=== PATIENT | male | born 1970 | race Caucasian/White ===

== ENCOUNTER → 2017-01-02 | Outpatient (CLI) | payer OTHER ==
[~2017-01-02] MED LIST: TRIA1SPR4 NAE
[2017-01-02 13:18] LABS: BLOOD UREA NITROGEN 20 mg/dl (7-18); BUN/CREATININE RATIO 16.6 (10-20); CARBON DIOXIDE 28 mmol/L (21-32); CHLORIDE 107 mmol/L (98-107); GLUCOSE 99 mg/dl (70-99); HDL CHOLESTEROL 51 mg/dl; POTASSIUM 4.6 mmol/L (3.5-5.1); SODIUM 140 mmol/L (136-145)
[2017-01-02 13:29] LABS: CHOLESTEROL 213 mg/dl (0-200); CHOLESTEROL/HDL RATIO 4.2; LDL CHOLESTEROL CALCULATED 141 mg/dl; TRIGLYCERIDES 103 mg/dl (0-150); VERY LOW DENSITY LIPOPROT CALC 21 mg/dl
== END | disposition home or self-care (01) ==
LOC: C.LAB1850 08:57
PROVIDERS: ATTEND Internal Medicine
DX: R68.82 Decreased libido (principal); E78.00 Pure hypercholesterolemia, unspecified; R53.83 Other fatigue; R73.03 Prediabetes

== ENCOUNTER 2017-02-25 11:47 | Emergency (ER) | payer OTHER ==
[~2017-02-25] VITALS: Ht 190.5 cm; Wt 95.6 kg
[2017-02-25 11:58] VITALS: TEMP 36.7; Ht 190.5 cm; Wt 95.6 kg
[2017-02-25] MEDS ORDERED: SODIUM CHLORIDE 0.9% 1000ML 2,000 ML IV STA (12:12)
[2017-02-25] MEDS ORDERED: TRIA1SPR4 NAE (12:34)
[2017-02-25 12:39] LABS: URINE APPEARANCE CLEAR (CLEAR); URINE BILIRUBIN NEG (NEG); URINE COLOR YELLOW; URINE NITRITE NEG (NEG); URINE SPECIFIC GRAVITY 1.023 (1.000-1.030); UROBILINOGEN NEG (NEG); ZZUR CULT IF INDIC CLEAN CATCH NO
--- NOTE | 2017-02-25 12:42 | EMERGENCY ROOM VISIT NOTE ---
History Report prepared by Randall: Ana Bernal Under the Supervision of: Dr. Thelma Kuhn M.D. First contact with patient: 12:02 Chief Complaint: SYNCOPE (NEAR SYNCOPE) Stated Complaint: FAINTED, DIZZY SPELLS, NAUSEA Nursing Triage Summary: pt states he was drinking heavily last night and felt weird and was laying in the tub and his reports his eyes rolled back and was passed out and now feels lightheaded History of Present Illness The patient is a 46 year old male who presents to the Emergency Room with complaints of a sudden syncopal episode that occurred this morning prior to arrival. The patient states that last evening he was at an event and drank a lot of alcohol. He states that when he woke this morning he was surprised to not feel very hung over. The patient states that while he was taking a shower this morning, a wave of fear overcame him and he began to feel lightheaded. He states that he sat down and called for his . The patient states that sitting down was the last thing he remembered. The patient's states that the patient's eyes rolled back in his head and he then collapsed. The patient states that when he came through he heard his yelling. The patient denies any drug use. He denies any chest pain or shortness of breath. The patient denies any recent travel or history of blood clots. He denies taking any blood pressure medications. The patient denies any tobacco use. He states that last night when he got home he ate a bowl of cereal. The patient does report that he has been increasingly anxious recently. Source of History: patient, spouse/significant other Onset: prior to arrival Position: other (global) Quality: other (syncopal episode) Timing: other (sudden) Associated Symptoms: No chest pain, No SOB Note: Associated symptoms: increasing anxiety Review of Systems See HPI for pertinent positives & negatives. A total of 10 systems reviewed and were otherwise negative. Past Medical & Surgical Surgical Problems: (1) Lower back surgery Family History Patient reports no known family medical history. Social History Smoking Status: Never Smoker Alcohol Use: occasionally Marital Status: Housing Status: lives with family Occupation Status: employed Current/Historical Medications Scheduled Triamcinolone Acetonide (Nasal (Nasacort Allergy 24Hr), 1 SPRAY CHRISTIE DAILY Allergies Coded Allergies: POLLEN (Verified Allergy, Unknown, "HAYFEVER", 02/25/17) Morphine (Verified Adverse Reaction, Unknown, DIZZINESS, 02/25/17) Physical Exam Vital Signs Date Time Temp Pulse Resp B/P (MAP) Pulse Ox O2 Delivery O2 Flow Rate FiO2 02/25/17 13:52 55 20 136/96 100 02/25/17 12:43 54 02/25/17 12:38 54 18 115/73 56 129/79 55 141/79 02/25/17 11:58 36.7 59 18 132/89 97 Room Air Physical Exam Vital signs reviewed. General: Well-appearing male, in no significant distress. HEENT: No scleral icterus, PERRLA, neck supple. Atraumatic. Cardiovascular: Regular rate and rhythm, no extra sounds. Pulmonary: Clear to auscultation bilaterally, normal work of breathing. Abdomen: Soft, nontender, nondistended, positive bowel sounds. Musculoskeletal: Atraumatic, no peripheral edema. Neurologic: Patient awake alert and oriented x 3, full strength in all 4 extremities. Cranial nerves 2 through 12 grossly intact. No meningeal signs. Skin: Warm, dry, no rash Medical Decision & Procedures ER Provider Diagnostic Interpretation: X-ray results as stated below per interpretation by me and the radiologist: CHEST ONE VIEW PORTABLE HISTORY: syncope COMPARISON: Chest 07/06/2013. FINDINGS: The lungs are clear. Cardiac silhouette is normal in size. No pleural effusions. No pneumothorax. IMPRESSION: No acute process. Electronically signed by: Parag Crespo M.D. 02/25/2017 12:51 PM Dictated Date/Time: 02/25/2017 12:50 PM Laboratory Results 02/25/17 12:21 Red Blood Count 4.97, Mean Corpuscular Volume 85.9, Mean Corpuscular Hemoglobin 30.6, Mean Corpuscular Hemoglobin Concent 35.6, Mean Platelet Volume 9.2, Neutrophils (%) (Auto) 44.2, Lymphocytes (%) (Auto) 40.0, Monocytes (%) (Auto) 12.0, Eosinophils (%) (Auto) 3.2, Basophils (%) (Auto) 0.4, Neutrophils # (Auto ) 2.24, Lymphocytes # (Auto) 2.03, Monocytes # (Auto) 0.61, Eosinophils # (Auto ) 0.16, Basophils # (Auto) 0.02 02/25/17 12:21 Test 02/25/17 12:07 02/25/17 12:20 02/25/17 12:21 02/25/17 12:43 Urine Color YELLOW Urine Appearance CLEAR (CLEAR) Urine pH 5.0 (4.5-7.5) Urine Specific [place] 1.023 (1.000-1.030) Urine Protein NEG (NEG) Urine Glucose (UA) NEG (NEG) Urine Ketones NEG (NEG) Urine Occult Blood NEG (NEG) Urine Nitrite NEG (NEG) Urine Bilirubin NEG (NEG) Urine Urobilinogen NEG (NEG) Urine Leukocyte Esterase NEG (NEG) Bedside Glucose 101 mg/dl (70-99) White Blood Count 5.07 K/uL (4.8-10.8) Red Blood Count 4.97 M/uL (4.7-6.1) Hemoglobin 15.2 g/dL (14.0-18.0) Hematocrit 42.7 % (42-52) Mean Corpuscular Volume 85.9 fL (80-100) Mean Corpuscular Hemoglobin 30.6 pg (25-34) Mean Corpuscular Hemoglobin Concent 35.6 g/dl (32-36) Platelet Count 218 K/uL (130-400) Mean Platelet Volume 9.2 fL (7.4-10.4) Neutrophils (%) (Auto) 44.2 % Lymphocytes (%) (Auto) 40.0 % Monocytes (%) (Auto) 12.0 % Eosinophils (%) (Auto) 3.2 % Basophils (%) (Auto) 0.4 % Neutrophils # (Auto) 2.24 K/uL (1.4-6.5) Lymphocytes # (Auto) 2.03 K/uL (1.2-3.4) Monocytes # (Auto) 0.61 K/uL (0.11-0.59) Eosinophils # (Auto) 0.16 K/uL (0-0.5) Basophils # (Auto) 0.02 K/uL (0-0.2) RDW Standard Deviation 38.1 fL (36.4-46.3) RDW Coefficient of Variation 12.1 % (11.5-14.5) Immature Granulocyte % (Auto) 0.2 % Immature Granulocyte # (Auto) 0.01 K/uL (0.00-0.02) Anion Gap 7.0 mmol/L (3-11) Est Creatinine Clear Calc Drug Dose 99.2 ml/min Estimated GFR () 92.2 Estimated GFR (Non- 79.5 BUN/Creatinine Ratio 14.3 (10-20) Calcium Level 8.7 mg/dl (8.5-10.1) Magnesium Level 2.1 mg/dl (1.8-2.4) Total Bilirubin 0.9 mg/dl (0.2-1) Direct Bilirubin 0.2 mg/dl (0-0.2) Aspartate Amino Transf (AST/SGOT) 23 U/L (15-37) Alanine Aminotransferase (ALT/SGPT) 34 U/L (12-78) Alkaline Phosphatase 65 U/L (45-117) Total Creatine Kinase 355 U/L (39-308) Creatine Kinase MB 2.8 ng/ml (0.5-3.6) Creatine Kinase MB Ratio 0.8 (0-3.0) Total Protein 6.8 gm/dl (6.4-8.2) Albumin 3.9 gm/dl (3.4-5.0) Thyroid Stimulating Hormone (TSH) 1.510 uIu/ml (0.300-4.500) Ethyl Alcohol mg/dL < 3.0 mg/dl (0-3) Bedside Troponin I < 0.030 ng/ml (0-0.045) Laboratory results per my review. Medications Administered Medications (Trade) Dose Ordered Sig/Kelton Route Start Time Stop Time Status Last Admin Dose Admin Sodium Chloride 2,000 ml @ 999 mls/hr Q2H1M STAT IV 02/25/17 12:12 02/25/17 14:12 DC 02/25/17 12:38 999 MLS/HR ECG Indication: syncope Rate (beats per minute): 52 Rhythm: sinus bradycardia Findings: no acute ischemic change, no ectopy ED Course 1211: Past medical records reviewed. The patient was evaluated in room C2B. A complete history and physical examination was performed. 1212: Ordered Sodium Chloride 2000 ml @ 999 mls/hr IV. 1348: I reevaluated the patient and he is resting comfortably. I discussed the exam findings with him and I discussed the treatment plan. He verbalized complete understanding and agreement. He is ready to go home. Medical Decision Differential diagnosis: Etiologies such as benign positional vertigo, dehydration, hypovolemia, anemia, tumor, infection, hypoglycemia, electrolyte abnormalities, cardiac sources, intracerebral event, toxicologic, neurologic, as well as others were entertained. This patient was evaluated and appeared to be in no significant distress. IV access was obtained and laboratory work was drawn. The patient was placed on the quality assurance monitor monitor. EKG was performed and reveals a sinus bradycardia. There is no evidence of acute ischemia or ectopy. Orthostatic vital signs are negative. Patient was given 2 L of IV fluids. Laboratory work is fairly unrevealing. I suspect the patient is suffering from a vasovagal syncope as he had a heavy alcohol intake last evening and then got into a hot shower preceding the syncopal event. His states he has done this in the past once. This time he appears to be stable. He has had no traumatic injury. He was advised of the findings and asked to follow-up with his PCP. If this recurs, he may warrant echocardiogram and stress test. Patient is aware of the plan and agrees. Medication Reconcilliation Current Medication List: was personally reviewed by me Blood Pressure Screening Patient's blood pressure: Elevated blood pressure (normal to mildly hypertensive) Blood pressure disposition: Referred to PCP Impression Primary Impression: Vasovagal syncope Scribe Attestation The scribe's documentation has been prepared under my direction and personally reviewed by me in its entirety. I confirm that the note above accurately reflects all work, treatment, procedures, and medical decision making performed by me. Departure Information Dispostion Home / Self-Care Referrals No Doctor, Assigned (PCP) RV. Valdes MD Forms HOME CARE DOCUMENTATION FORM, IMPORTANT VISIT INFORMATION Patient Instructions My [facility], Syncope Additional Instructions Diagnosis: Vasovagal syncope Drink plenty of clear fluids. Use caution when changing positions. Follow-up with your physician for reevaluation if symptoms persist. Return to the ER for worsening of symptoms or any medical concerns.
[2017-02-25 12:47] LABS: BASO % 0.4 %; BASO ABS # 0.02 K/uL (0-0.2); COMPLETE YES; EOS % 3.2 %; HEMATOCRIT 42.7 % (42-52); IG% 0.2 %; LYMPH ABS # 2.03 K/uL (1.2-3.4); MEAN CELL VOLUME 85.9 fL (80-100); MEAN CORPUSCULAR HEMOGLOBIN 30.6 pg (25-34); MEAN CORPUSCULAR HGB CONC 35.6 g/dl (32-36); MEAN PLATELET VOLUME 9.2 fL (7.4-10.4); NEUT % 44.2 %; PLATELET COUNT 218 K/uL (130-400); RED BLOOD COUNT 4.97 M/uL (4.7-6.1); WHITE BLOOD COUNT 5.07 K/uL (4.8-10.8)
[2017-02-25 12:47] LABS: MANUAL MICROSCOPIC REQUIRED? NO; REVIEW REQ? NO
--- NOTE | 2017-02-25 12:52 | DIAGNOSTIC IMAGING REPORT ---
CHEST ONE VIEW PORTABLE HISTORY: syncope COMPARISON: Chest 07/06/2013. FINDINGS: The lungs are clear. Cardiac silhouette is normal in size. No pleural effusions. No pneumothorax. IMPRESSION: No acute process. Electronically signed by: Parag Crespo M.D. 02/25/2017 12:51 PM Dictated Date/Time: 02/25/2017 12:50 PM
[2017-02-25 13:04] LABS: BUN/CREATININE RATIO 14.3 (10-20); CALCIUM 8.7 mg/dl (8.5-10.1); CREATININE 1.1 mg/dl (0.60-1.40); MAGNESIUM 2.1 mg/dl (1.8-2.4); POTASSIUM 4.3 mmol/L (3.5-5.1)
[2017-02-25 13:15] LABS: CKMB/CK RATIO 0.8 (0-3.0); THYROID STIMULATING HORMONE 1.51 uIu/ml (0.300-4.500)
[2017-02-25 13:52] VITALS: BP 136/96; PULSE 55; O2SAT 100
== END 2017-02-25 13:55 | disposition home or self-care (01) ==
LOC: C.EDB 11:48 → C.EDC 13:55
DX: R55 Syncope and collapse (principal)

== ENCOUNTER → 2017-10-30 | Outpatient (CLI) | payer OTHER ==
[2017-10-30 12:29] LABS: BASO % 0.2 %; BASO ABS # 0.01 K/uL (0-0.2); EOS % 1.8 %; HEMATOCRIT 45.1 % (42-52); HEMOGLOBIN 16.1 g/dL (14.0-18.0); IG# 0.02 K/uL (0.00-0.02); LYMPH % 40.7 %; LYMPH ABS # 2.31 K/uL (1.2-3.4); MEAN CELL VOLUME 86.1 fL (80-100); MEAN CORPUSCULAR HEMOGLOBIN 30.7 pg (25-34); MEAN CORPUSCULAR HGB CONC 35.7 g/dl (32-36); MEAN PLATELET VOLUME 9.2 fL (7.4-10.4); MONO % 10.1 %; MONO ABS # 0.57 K/uL (0.11-0.59); NEUT % 46.8 %; NEUT ABS # 2.66 K/uL (1.4-6.5); PLATELET COUNT 233 K/uL (130-400); RED CELL DISTRIBUTION WIDTH CV 12.2 % (11.5-14.5); RED CELL DISTRIBUTION WIDTH SD 38.5 fL (36.4-46.3); WHITE BLOOD COUNT 5.67 K/uL (4.8-10.8)
[2017-10-30 12:57] LABS: ALBUMIN 4.1 gm/dl (3.4-5.0); ALT/SGPT 44 U/L (12-78); AST/SGOT 28 U/L (15-37); BLOOD UREA NITROGEN 18 mg/dl (7-18); CALCIUM 9.1 mg/dl (8.5-10.1); CARBON DIOXIDE 27 mmol/L (21-32); CHOLESTEROL 205 mg/dl (0-200); CREATININE 1.13 mg/dl (0.60-1.40); GLUCOSE 104 mg/dl (70-99); POTASSIUM 4.8 mmol/L (3.5-5.1); SODIUM 137 mmol/L (136-145)
[2017-10-30 13:08] LABS: ALKALINE PHOSPHATASE 77 U/L (45-117); LDL CHOLESTEROL CALCULATED 141 mg/dl; TOTAL PROTEIN 7.3 gm/dl (6.4-8.2)
== END | disposition home or self-care (01) ==
LOC: C.LAB1850 10:57
PROVIDERS: ATTEND Physician Assistant
DX: I44.7 Left bundle-branch block, unspecified (principal)